=== PATIENT | female | born 1965 | race Caucasian/White ===

== ENCOUNTER 2022-12-31 00:08 | Emergency (ER) | payer OTHER ==
[~2022-12-31] VITALS: Ht 154.9 cm; Wt 63.5 kg
[2022-12-31 00:49] VITALS: BP 119/73
--- NOTE | 2022-12-31 01:49 | NUR ---
PT TO BED #6
[2022-12-31] MEDS ORDERED: LOTC TP (02:14)
[2022-12-31] MEDS ORDERED: CEPH-588 PO (02:14)
--- NOTE | 2022-12-31 02:24 | NUR ---
Patient discharged with v/s stable. Written and verbal after care instructions given and explained. Patient alert, oriented and verbalized understanding of instructions. Ambulatory with steady gait. All questions addressed prior to discharge. ID band removed. Patient advised to follow up with PMD. Rx of Cephalexina nd Clotrimazole given. Opportunity to ask questions provided and answered.
== END 2022-12-31 02:24 | disposition home or self-care (01) ==
LOC: MED 00:08
DX: R21 Rash and other nonspecific skin eruption (principal)
CPT/HCPCS: 99283

== ENCOUNTER 2023-04-10 11:13 | Emergency (ER) | payer OTHER ==
[~2023-04-10] VITALS: Ht 154.9 cm; Wt 64.9 kg
[~2023-04-10 11:13] MED LIST: CEPH-588 PO; LOTC TP
[2023-04-10 11:17] VITALS: BP 134/76; PULSE 81; RESP 20; TEMP 96.9; O2SAT 97
--- NOTE | 2023-04-10 11:20 | NUR ---
PT WHEELCHAIR ASSISTED TO BED 11
[2023-04-10] MEDS ORDERED: KETOROLAC 30 MG/ML VIAL IM ONE (11:45)
--- NOTE | 2023-04-10 12:05 | NUR ---
ESCORTED PT BY W/C TO RESTROOM.
--- NOTE | 2023-04-10 12:19 | NUR ---
MEDICATED PT ORDERED.
--- NOTE | 2023-04-10 12:24 | NUR ---
EMT TO BRING PT AN ICE PACK AND SPLINT R ANKLE.
[2023-04-10] MEDS ORDERED: NAPR-1717 PO (12:32)
--- NOTE | 2023-04-10 12:58 | NUR ---
PT MOVED TO CHAIR B. PRIOR TO MOVE, R LOWER EXTREMITY PLACED IN SHORT LEG POSTERIOR SPLINT. TEJ WRAP X 3. PT GIVEN CRUTCHES AND RETURNED SAFE DEMONSTRATION.
[2023-04-10 12:59] VITALS: BP 113/79; PULSE 67; RESP 18; TEMP 98.2; O2SAT 99
--- NOTE | 2023-04-10 12:59 | NUR ---
Patient discharged with v/s stable. Written and verbal after care instructions given and explained. Patient alert, oriented and verbalized understanding of instructions. Ambulatory/CRUTCHES AND SPLINT IN PLACE with steady gait. All questions addressed prior to discharge. ID band removed. Patient advised to follow up with PMD. Rx of given. Patient educated on NAPROXEN indication of medication including possible reaction and side effects. Opportunity to ask questions provided and answered. REFERRAL TO [facility] PROVIDED FOR ORTHO CONSULT.
== END 2023-04-10 12:59 | disposition home or self-care (01) ==
LOC: MED 11:13
DX: S82.831A Other fracture of upper and lower end of right fibula, initial encounter for closed fracture (principal); Z79.1 Long term (current) use of non-steroidal anti-inflammatories (NSAID); Z79.899 Other long term (current) drug therapy; Z79.2 Long term (current) use of antibiotics; W10.8XXA Fall (on) (from) other stairs and steps, initial encounter; Y92.89 Other specified places as the place of occurrence of the external cause; Y93.89 Activity, other specified; Y99.8 Other external cause status
CPT/HCPCS: 29515; 73610; 96372; 99283; J1885